=== PATIENT | male | born 1955 | race Caucasian/White ===

== ENCOUNTER 2022-01-14 03:55 | Inpatient (IN) | payer OTHER ==
[2022-01-14] MEDS ORDERED: ROCURONIUM BROMIDE 50 MG/5 ML VIAL IV ONE (04:02)
[2022-01-14] MEDS ORDERED: MIDAZOLAM HCL 5 MG/1 ML Single Dose Vial IVPUSH ONE (04:02)
[2022-01-14] MEDS: PROPOFOL 1,000,000 MCG/100 ML VIAL IVPB SCH ×3 (04:12→16:00)
[2022-01-14 04:33] LABS: EOS % 6.3 % (0-4.5); HEMATOCRIT 36.4 % (35.4-49); HEMOGLOBIN 11.8 GM/dL (11.7-16.9); LYMPH % 23.8 % (8-40); MCH 29.8 pg (25.7-33.7); MCHC 32.3 g/dl (32.0-35.9); MEAN CELL VOLUME 92.3 fl (80-96); NEUT % 58.9 % (42.8-82.8); PLATELET COUNT 403 10^3/uL (134-434); RBC 3.95 M/mm3 (4.00-5.60); RDW 15.8 % (11.9-15.9); WHITE BLOOD COUNT 16.4 K/mm3 (4.0-10.0)
[2022-01-14 04:36] LABS: ARTERIAL BLD GAS O2 SATURATION 99.8 % (95-98); ARTERIAL BLOOD GAS BASE EXCESS -3.2 mmol/L (-2-2); ARTERIAL BLOOD GAS PO2 505.5 mmHg (80-100)
[2022-01-14 04:39] LABS: ALLENS TEST POSITIVE
[2022-01-14 04:40] LABS: VENT MODE A/C; VENT RATE 20
[2022-01-14] MEDS ORDERED: methylPREDNISolone NA SUCC 125 MG/2 ML VIAL IVPB ONE (04:57)
[2022-01-14] MEDS: ALBUTEROL SO4 2.5/IPRATROPIUM 0.5 INH SOL 3 ML VIAL.NEB. NEB SCH ×5 (05:50→20:35)
[2022-01-14 06:12] LABS: ALBUMIN 3.8 g/dl (3.4-5.0); BLOOD UREA NITROGEN 14.1 mg/dL (7-18); MAGNESIUM 3.4 mg/dL (1.8-2.4)
[2022-01-14] MEDS: FENTANYL NS IVPB 500 MCG/100 ML BAG IVPB SCH ×4 (06:14→21:00)
[2022-01-14 06:15] LABS: CREATININE 0.8 mg/dL (0.55-1.3); PHOSPHOROUS 5.7 mg/dL (2.5-4.9)
[2022-01-14 06:16] LABS: TOT PROT 7.7 g/dl (6.4-8.2)
[2022-01-14 06:17] LABS: BILIRUBIN,TOTAL 0.4 mg/dL (0.2-1)
[2022-01-14] MEDS: methylPREDNISolone NA SUCC 40 MG/1 ML VIAL IVPUSH SCH ×2 (09:07→17:15)
[2022-01-14] MEDS: ENOXAPARIN NA (PORCINE) 40 MG/0.4 ML DISP.SYRIN SQ SCH (09:08)
[2022-01-14] MEDS ORDERED: REMDESIVIR 100 MG in SODIUM CHLORIDE 270 ML IVPB ONE (10:26)
[2022-01-14] MEDS ORDERED: ASPIRIN 81 MG CHEWABLE TABLETS PO SCH (11:00)
[2022-01-14] MEDS ORDERED: ZINC SULFATE 220 MG CAPSULE (FP) PO SCH (11:00)
[2022-01-14] MEDS ORDERED: CLOPIDOGREL BISULFATE 75 MG TABLET (FP) PO SCH (11:00)
[2022-01-14] MEDS ORDERED: PANTOPRAZOLE 40 MG TABLET PO SCH (11:00)
[2022-01-14] MEDS: MUPIROCIN 2% TOPICAL OINTMENT FOR DECOLONIZATION NS SCH ×2 (11:17→22:27)
[2022-01-14] MEDS: CLOPIDOGREL BISULFATE 75 MG TABLET (FP) GT SCH (11:42)
[2022-01-14] MEDS: ZINC SULFATE 220 MG CAPSULE (FP) GT SCH (11:42)
[2022-01-14] MEDS: ASPIRIN 81 MG CHEWABLE TABLETS GT SCH (11:42)
[2022-01-14 11:43] LABS: ARTERIAL BLD GAS O2 SATURATION 97.2 % (95-98); ARTERIAL BLOOD GAS PO2 100.6 mmHg (80-100); ARTERIAL BLOOD GAS pH 7.342 (7.350-7.450)
[2022-01-14 11:44] LABS: ALLENS TEST POSITIVE
[2022-01-14 11:45] LABS: VENT MODE AC; VENT RATE 24
[2022-01-14] MEDS ORDERED: REMDESIVIR 200 MG in SODIUM CHLORIDE 250 ML IVPB ONE (12:00)
[2022-01-14] MEDS: ASCORBIC ACID 500 MG/5 ML UNIT DOSE CUP GT SCH (12:13)
[2022-01-14] MEDS ORDERED: GABAPENTIN 300 MG CAPSULE PO SCH (14:00)
[2022-01-14] MEDS: PANTOPRAZOLE SODIUM 40 MG VIAL IVPUSH SCH (15:02)
[2022-01-14] MEDS: GABAPENTIN 250 MG/5 ML ORAL SOLUTION, 470 ML BOTTLE GT SCH ×2 (15:03→22:27)
[2022-01-14] MEDS ORDERED: ZOLPIDEM TARTRATE 5 MG TABLET PO SCH (22:00)
[2022-01-14] MEDS ORDERED: ATORVASTATIN CA 40 MG TABLET (FP) PO SCH (22:00)
[2022-01-14] MEDS ORDERED: ZOLPIDEM TARTRATE 5 MG TABLET NGT PRN (22:00)
[2022-01-14] MEDS: ATORVASTATIN CA 40 MG TABLET (FP) GT SCH (22:27)
[2022-01-14] MEDS: CHLORHEXIDINE GLUCONATE 4% CLEANSER FOR DECOLONIZATION TP SCH (22:27)
[2022-01-15] MEDS: PROPOFOL 1,000,000 MCG/100 ML VIAL IVPB SCH ×4 (00:05→17:13)
[2022-01-15] MEDS: ALBUTEROL SO4 2.5/IPRATROPIUM 0.5 INH SOL 3 ML VIAL.NEB. NEB SCH ×6 (00:46→20:54)
[2022-01-15] MEDS: methylPREDNISolone NA SUCC 40 MG/1 ML VIAL IVPUSH SCH ×3 (02:51→17:13)
[2022-01-15] MEDS: FENTANYL NS IVPB 500 MCG/100 ML BAG IVPB SCH ×4 (06:49→15:04)
[2022-01-15] MEDS: GABAPENTIN 250 MG/5 ML ORAL SOLUTION, 470 ML BOTTLE GT SCH ×3 (06:49→21:34)
[2022-01-15 07:05] LABS: ARTERIAL BLD GAS O2 SATURATION 97.6 % (95-98); ARTERIAL BLOOD GAS BASE EXCESS 0.5 mmol/L (-2-2); ARTERIAL BLOOD GAS PO2 106.2 mmHg (80-100); ARTERIAL BLOOD GAS pH 7.353 (7.350-7.450)
[2022-01-15 07:14] LABS: ALLENS TEST POSITIVE; VENT MODE A/C; VENT RATE 24
[2022-01-15 08:13] LABS: BASO % 0.1 % (0-2.0); HEMATOCRIT 31.7 % (35.4-49); HEMOGLOBIN 10.5 GM/dL (11.7-16.9); LYMPH % 5.2 % (8-40); MCH 30.2 pg (25.7-33.7); MCHC 32.9 g/dl (32.0-35.9); MEAN CELL VOLUME 91.7 fl (80-96); MEAN PLT VOLUME 8.1 fl (7.5-11.1); MONO % 8.9 % (3.8-10.2); NEUT % 85.8 % (42.8-82.8); PLATELET COUNT 308 10^3/uL (134-434); RBC 3.46 M/mm3 (4.00-5.60); RDW 15.9 % (11.9-15.9); WHITE BLOOD COUNT 17.9 K/mm3 (4.0-10.0)
[2022-01-15 08:18] LABS: ALBUMIN 3.2 g/dl (3.4-5.0); BLOOD UREA NITROGEN 20.6 mg/dL (7-18); CALCIUM 9.2 mg/dL (8.5-10.1); MAGNESIUM 2.5 mg/dL (1.8-2.4)
[2022-01-15 08:22] LABS: PHOSPHOROUS 4.7 mg/dL (2.5-4.9)
[2022-01-15 08:23] LABS: BILIRUBIN,TOTAL 0.4 mg/dL (0.2-1); CREATININE 0.7 mg/dL (0.55-1.3)
[2022-01-15 08:24] LABS: TOT PROT 6.3 g/dl (6.4-8.2)
[2022-01-15] MEDS ORDERED: DEXMEDETOMIDINE HCL IVPB SCH (09:00)
[2022-01-15] MEDS ORDERED: SODIUM CHLORIDE IVPB SCH (09:00)
[2022-01-15] MEDS ORDERED: MIDAZOLAM HCL 5 MG/1 ML Single Dose Vial IVPUSH ONE ×2 (09:00→11:51)
[2022-01-15] MEDS: ASPIRIN 81 MG CHEWABLE TABLETS GT SCH (09:21)
[2022-01-15] MEDS: CLOPIDOGREL BISULFATE 75 MG TABLET (FP) GT SCH (09:21)
[2022-01-15] MEDS: ZINC SULFATE 220 MG CAPSULE (FP) GT SCH (09:21)
[2022-01-15] MEDS: ENOXAPARIN NA (PORCINE) 40 MG/0.4 ML DISP.SYRIN SQ SCH (09:21)
[2022-01-15] MEDS: MUPIROCIN 2% TOPICAL OINTMENT FOR DECOLONIZATION NS SCH ×2 (09:22→21:33)
[2022-01-15] MEDS: PANTOPRAZOLE SODIUM 40 MG VIAL IVPUSH SCH (09:22)
[2022-01-15] MEDS: ASCORBIC ACID 500 MG/5 ML UNIT DOSE CUP GT SCH (09:27)
[2022-01-15] MEDS ORDERED: REMDESIVIR 100 MG in SODIUM CHLORIDE 270 ML IVPB ONE (10:00)
[2022-01-15] MEDS: REMDESIVIR 100 MG in SODIUM CHLORIDE 250 ML IVPB SCH (11:42)
[2022-01-15] MEDS: CHLORHEXIDINE GLUCONATE 4% CLEANSER FOR DECOLONIZATION TP SCH (21:33)
[2022-01-15] MEDS: ATORVASTATIN CA 40 MG TABLET (FP) GT SCH (21:34)
[2022-01-16] MEDS: MIDAZOLAM HCL 5 MG/1 ML Single Dose Vial IVPUSH PRN ×2 (01:30→05:29)
[2022-01-16] MEDS: methylPREDNISolone NA SUCC 40 MG/1 ML VIAL IVPUSH SCH ×3 (02:00→18:53)
[2022-01-16] MEDS: PROPOFOL 1,000,000 MCG/100 ML VIAL IVPB SCH (04:10)
[2022-01-16] MEDS: GABAPENTIN 250 MG/5 ML ORAL SOLUTION, 470 ML BOTTLE GT SCH ×3 (05:09→22:02)
[2022-01-16] MEDS: FENTANYL NS IVPB 500 MCG/100 ML BAG IVPB SCH (07:15)
[2022-01-16 07:36] LABS: HEMATOCRIT 34.1 % (35.4-49); HEMOGLOBIN 11.2 GM/dL (11.7-16.9); MCHC 32.9 g/dl (32.0-35.9); MEAN PLT VOLUME 8.2 fl (7.5-11.1); PLATELET COUNT 315 10^3/uL (134-434); RBC 3.75 M/mm3 (4.00-5.60); RDW 15.8 % (11.9-15.9); WHITE BLOOD COUNT 13.5 K/mm3 (4.0-10.0)
[2022-01-16 07:54] LABS: CALCIUM 8.9 mg/dL (8.5-10.1)
[2022-01-16 07:55] LABS: BLOOD UREA NITROGEN 18.1 mg/dL (7-18); MAGNESIUM 2.4 mg/dL (1.8-2.4)
[2022-01-16 07:58] LABS: CREATININE 0.5 mg/dL (0.55-1.3); PHOSPHOROUS 3.5 mg/dL (2.5-4.9)
[2022-01-16 07:59] LABS: BILIRUBIN,TOTAL 0.3 mg/dL (0.2-1); TOT PROT 6.2 g/dl (6.4-8.2)
[2022-01-16] MEDS: ALBUTEROL SO4 2.5/IPRATROPIUM 0.5 INH SOL 3 ML VIAL.NEB. NEB SCH ×4 (08:40→21:04)
[2022-01-16] MEDS: ZINC SULFATE 220 MG CAPSULE (FP) GT SCH (09:14)
[2022-01-16] MEDS: PANTOPRAZOLE SODIUM 40 MG VIAL IVPUSH SCH (09:14)
[2022-01-16] MEDS: MUPIROCIN 2% TOPICAL OINTMENT FOR DECOLONIZATION NS SCH ×2 (09:14→22:01)
[2022-01-16] MEDS: ENOXAPARIN NA (PORCINE) 40 MG/0.4 ML DISP.SYRIN SQ SCH (09:14)
[2022-01-16] MEDS: ASPIRIN 81 MG CHEWABLE TABLETS GT SCH (09:14)
[2022-01-16] MEDS: CLOPIDOGREL BISULFATE 75 MG TABLET (FP) GT SCH (09:15)
[2022-01-16] MEDS: ASCORBIC ACID 500 MG/5 ML UNIT DOSE CUP GT SCH (09:15)
[2022-01-16] MEDS: REMDESIVIR 100 MG in SODIUM CHLORIDE 250 ML IVPB SCH (12:00)
[2022-01-16] MEDS ORDERED: DEXMEDETOMIDINE IN 0.9 % NACL 400 MCG/100 ML VIAL IVPB SCH (14:15)
[2022-01-16 14:28] LABS: COCAINE, UR NEGATIVE (NEGATIVE); METHADONE, UR NEGATIVE (NEGATIVE); OPIATES, URI NEGATIVE (NEGATIVE); PHENCYCLIDINE,URINE NEGATIVE (NEGATIVE); URINE AMPHETAMINES NEGATIVE (NEGATIVE); URINE BARBITURATES NEGATIVE (NEGATIVE); URINE BENZODIAZEPINES POSITIVE (NEGATIVE)
[2022-01-16] MEDS ORDERED: METOPROLOL TARTRATE 5 MG/5 ML VIAL IVPUSH PRN (15:37)
[2022-01-16] MEDS ORDERED: MELATONIN 5 MG TABLETS PO PRN (19:37)
[2022-01-16] MEDS ORDERED: ACETAMINOPHEN 650 MG/20.3 ML ORAL SOLUTION (CUPS) GT PRN (19:52)
[2022-01-16] MEDS: CHLORHEXIDINE GLUCONATE 4% CLEANSER FOR DECOLONIZATION TP SCH (22:02)
[2022-01-16] MEDS: ATORVASTATIN CA 40 MG TABLET (FP) GT SCH (22:02)
[2022-01-17] MEDS: methylPREDNISolone NA SUCC 40 MG/1 ML VIAL IVPUSH SCH ×3 (01:52→18:00)
[2022-01-17] MEDS: GABAPENTIN 250 MG/5 ML ORAL SOLUTION, 470 ML BOTTLE GT SCH ×3 (06:09→21:42)
[2022-01-17 06:42] LABS: HEMATOCRIT 31.1 % (35.4-49); HEMOGLOBIN 10.1 GM/dL (11.7-16.9); MCH 29.7 pg (25.7-33.7); MCHC 32.5 g/dl (32.0-35.9); MEAN CELL VOLUME 91.3 fl (80-96); MEAN PLT VOLUME 8.3 fl (7.5-11.1); PLATELET COUNT 285 10^3/uL (134-434); RBC 3.41 M/mm3 (4.00-5.60); RDW 16.1 % (11.9-15.9); WHITE BLOOD COUNT 12.7 K/mm3 (4.0-10.0)
[2022-01-17 07:09] LABS: CALCIUM 8.6 mg/dL (8.5-10.1)
[2022-01-17 07:10] LABS: BLOOD UREA NITROGEN 26.4 mg/dL (7-18); MAGNESIUM 2.2 mg/dL (1.8-2.4)
[2022-01-17 07:13] LABS: PHOSPHOROUS 3.7 mg/dL (2.5-4.9)
[2022-01-17 07:14] LABS: CREATININE 0.6 mg/dL (0.55-1.3)
[2022-01-17] MEDS: ALBUTEROL SO4 2.5/IPRATROPIUM 0.5 INH SOL 3 ML VIAL.NEB. NEB SCH ×4 (08:12→20:05)
[2022-01-17] MEDS: ASCORBIC ACID 500 MG/5 ML UNIT DOSE CUP GT SCH (10:45)
[2022-01-17] MEDS: ZINC SULFATE 220 MG CAPSULE (FP) GT SCH (10:45)
[2022-01-17] MEDS: ENOXAPARIN NA (PORCINE) 40 MG/0.4 ML DISP.SYRIN SQ SCH (10:45)
[2022-01-17] MEDS: MUPIROCIN 2% TOPICAL OINTMENT FOR DECOLONIZATION NS SCH ×2 (10:45→21:42)
[2022-01-17] MEDS: ASPIRIN 81 MG CHEWABLE TABLETS GT SCH (10:45)
[2022-01-17] MEDS: CLOPIDOGREL BISULFATE 75 MG TABLET (FP) GT SCH (10:45)
[2022-01-17] MEDS: PANTOPRAZOLE SODIUM 40 MG VIAL IVPUSH SCH (10:45)
[2022-01-17] MEDS: REMDESIVIR 100 MG in SODIUM CHLORIDE 250 ML IVPB SCH (11:14)
[2022-01-17] MEDS: ATORVASTATIN CA 40 MG TABLET (FP) GT SCH (21:42)
[2022-01-17] MEDS: CHLORHEXIDINE GLUCONATE 4% CLEANSER FOR DECOLONIZATION TP SCH (21:42)
[2022-01-18] MEDS: methylPREDNISolone NA SUCC 40 MG/1 ML VIAL IVPUSH SCH ×3 (02:35→17:37)
[2022-01-18] MEDS: GABAPENTIN 250 MG/5 ML ORAL SOLUTION, 470 ML BOTTLE GT SCH ×2 (06:13→14:03)
[2022-01-18 07:42] LABS: HEMATOCRIT 35.1 % (35.4-49); HEMOGLOBIN 11.6 GM/dL (11.7-16.9); MCH 29.8 pg (25.7-33.7); MCHC 32.9 g/dl (32.0-35.9); MEAN CELL VOLUME 90.7 fl (80-96); MEAN PLT VOLUME 8.9 fl (7.5-11.1); PLATELET COUNT 325 10^3/uL (134-434); RBC 3.87 M/mm3 (4.00-5.60); RDW 15.7 % (11.9-15.9)
[2022-01-18 07:53] LABS: CALCIUM 9.3 mg/dL (8.5-10.1)
[2022-01-18 07:55] LABS: BLOOD UREA NITROGEN 14.9 mg/dL (7-18); MAGNESIUM 2.3 mg/dL (1.8-2.4)
[2022-01-18 07:57] LABS: CREATININE 0.5 mg/dL (0.55-1.3)
[2022-01-18] MEDS ORDERED: ALBUTEROL SO4 HFA INHALER IH PRN (08:17)
[2022-01-18] MEDS: ALBUTEROL SO4 2.5/IPRATROPIUM 0.5 INH SOL 3 ML VIAL.NEB. NEB SCH (08:29)
[2022-01-18] MEDS: ASPIRIN 81 MG CHEWABLE TABLETS GT SCH (09:18)
[2022-01-18] MEDS: CLOPIDOGREL BISULFATE 75 MG TABLET (FP) GT SCH (09:18)
[2022-01-18] MEDS: ZINC SULFATE 220 MG CAPSULE (FP) GT SCH (09:18)
[2022-01-18] MEDS: ASCORBIC ACID 500 MG/5 ML UNIT DOSE CUP GT SCH (09:18)
[2022-01-18] MEDS: ENOXAPARIN NA (PORCINE) 40 MG/0.4 ML DISP.SYRIN SQ SCH (09:18)
[2022-01-18] MEDS: PANTOPRAZOLE SODIUM 40 MG VIAL IVPUSH SCH (09:18)
[2022-01-18] MEDS: MUPIROCIN 2% TOPICAL OINTMENT FOR DECOLONIZATION NS SCH ×2 (09:19→22:01)
[2022-01-18] MEDS: REMDESIVIR 100 MG in SODIUM CHLORIDE 250 ML IVPB SCH (12:29)
[2022-01-18] MEDS: CHLORHEXIDINE GLUCONATE 4% CLEANSER FOR DECOLONIZATION TP SCH (22:01)
[2022-01-18] MEDS: ATORVASTATIN CA 40 MG TABLET (FP) GT SCH (22:01)
[2022-01-19] MEDS: GABAPENTIN 250 MG/5 ML ORAL SOLUTION, 470 ML BOTTLE GT SCH ×2 (00:05→06:24)
[2022-01-19] MEDS: methylPREDNISolone NA SUCC 40 MG/1 ML VIAL IVPUSH SCH ×2 (02:13→09:40)
[2022-01-19] MEDS: ASPIRIN 81 MG CHEWABLE TABLETS GT SCH (09:40)
[2022-01-19] MEDS: CLOPIDOGREL BISULFATE 75 MG TABLET (FP) GT SCH (09:40)
[2022-01-19] MEDS: ENOXAPARIN NA (PORCINE) 40 MG/0.4 ML DISP.SYRIN SQ SCH (09:40)
[2022-01-19] MEDS: ZINC SULFATE 220 MG CAPSULE (FP) GT SCH (09:40)
[2022-01-19] MEDS: PANTOPRAZOLE SODIUM 40 MG VIAL IVPUSH SCH (09:40)
[2022-01-19] MEDS: ASCORBIC ACID 500 MG/5 ML UNIT DOSE CUP GT SCH (09:41)
[2022-01-19 14:00] VITALS: BMI 19.7
[2022-01-19 15:38] VITALS: BP 123/71; PULSE 97; TEMP 99
[2022-01-19] MEDS ORDERED: methylPREDNISolone NA SUCC 40 MG/1 ML VIAL IVPUSH SCH (22:00)
== END 2022-01-19 15:00 | disposition home or self-care (01) | DRG 137 ==
LOC: JER 03:55 → JERBED 04:01 → JICU 05:44
PROVIDERS: ADMIT Internal Medicine Pulmonary Disease; ATTEND Internal Medicine
PROC: 5A1945Z Respiratory Ventilation, 24-96 Consecutive Hours (ICD-10-PCS; principal; 2022-01-14)
PROC: 0BH17EZ Insertion of Endotracheal Airway into Trachea, Via Natural or Artificial Opening (ICD-10-PCS; 2022-01-14)
PROC: XW033E5 Introduction of Remdesivir Anti-infective into Peripheral Vein, Percutaneous Approach, New Technology Group 5 (ICD-10-PCS; 2022-01-14)
DX: U07.1 COVID-19 (principal); J96.02 Acute respiratory failure with hypercapnia; E87.2 Acidosis; J44.1 Chronic obstructive pulmonary disease with (acute) exacerbation; I25.10 Atherosclerotic heart disease of native coronary artery without angina pectoris; I11.0 Hypertensive heart disease with heart failure; I50.9 Heart failure, unspecified; E78.5 Hyperlipidemia, unspecified; Z98.61 Coronary angioplasty status
CPT/HCPCS: 0241U-QW; 31500; 36415; 36600; 71045-TC-FY; 80048; 80053; 80307; 82728; 82803; 82962; 83036; 83605; 83735; 83880; 84100; 84443; 84484; 85025; 85027; 85651; 85730; 86140; 86480; 87040; 87899; 93005; 93010; 94002; 94640; 99285-25; C9399

== ENCOUNTER 2022-08-23 03:19 | Emergency (ER) | payer OTHER ==
[2022-08-23 03:37] VITALS: BP 114/84; PULSE 85; RESP 20; TEMP 97.8; BMI 21.9
== END 2022-08-23 05:56 | disposition left against medical advice (07) ==
LOC: JER 03:19
DX: R06.02 Shortness of breath (principal)
CPT/HCPCS: 99281-25